=== PATIENT | female | born 1985 | race Two or more races ===

== ENCOUNTER 2016-12-11 22:34 | Emergency (ER) | payer BC, SELFPAY ==
--- NOTE | ~2016-12-11 | ER ---
[facility] AGE[facility] 31 Y [address] ROOM: [place] [address] LOCATION: ED ADMIT DATE: 12/11/2016 ER/Outpatient Report DISCHARGE DATE: 12/12/2016 FAMILY PHYSICIAN: Eliana Spear MD ATTENDING PHYSICIAN: Olivia Morgan HISTORY OF PRESENT ILLNESS: A 31-year-old female who presents today with chief complaint of about 2-1/2 hours of upper abdominal pain. It is in a bandlike in her upper abdomen, radiating to her right back, burning pain, associated with some nausea and vomiting x1, but denies any urinary symptoms. Denies any fever or chills. No diarrhea, no constipation. She has had something similar like this before. In fact, she has been to this ER before and was diagnosed with gallstones. She says that 2 hours prior to this pain started, she had a big piece of pizza. Reports her pain is a 9/10, burning and sharp at this time, coming and going in intensity but still constant. PAST MEDICAL HISTORY: Includes depression and gallstones. She has an IUD in place. SOCIAL HISTORY: She does not smoke or use any drugs, but drinks occasionally. MEDICATIONS: Tylenol for pain. ALLERGIES: NONE. REVIEW OF SYSTEMS: Reviewed by me and negative with the exception of those discussed in the HPI. PHYSICAL EXAMINATION: GENERAL: The patient looks uncomfortable. She is standing up in a stretcher, unable to sit still. She is not actively vomiting or retching. HEART: Rate is regular rate and regular rhythm at this time. LUNGS: Her lung sounds sound clear. ABDOMEN: She is tender in the right upper quadrant. Positive Villeda's as well, but no peritoneal signs. Her bowel sounds are normoactive. SKIN: Warm and dry. She does not have any scleral icterus. NEUROLOGIC: No neuro focal deficits. VITAL SIGNS: Her vital signs were reviewed. She is 5 feet 3 inches, weighs 59.9 kg. Blood pressure 156/67, heart rate 64, respiratory rate 20, temperature is 98.4, and saturations are 97% on room air. [facility] 31 [facility] [address] ROOM: [place], [place] [address] LOCATION: [facility] ADMIT DATE: 12/11/2016 ER/Outpatient Report DISCHARGE DATE: 12/12/2016 FAMILY PHYSICIAN: Eliana Spear MD ATTENDING PHYSICIAN: Olivia Morgan EMERGENCY ROOM COURSE: We did check some blood work first, and we also gave her Zofran, morphine, and Toradol through the IV. Her procalcitonin is less than 0.05. Her lactic acid is 1.3. Her CBC shows a white count of 14.5, H and H 12.9/37.3, platelets are 258. She has no bandemia. Her urine, 25 leukocytes, negative nitrites, and negative for . The CMS shows sodium 140, potassium 3.5, chloride 108, CO2 of 25, anion gap 10.5, glucose 120, BUN is 14, creatinine is 0.6, alkaline phosphatase 50, AST is 10, ALT is 21, GFR greater than 60, lipase is 234. An official ultrasound was ordered, which shows positive gallstones, but no anterior gallbladder wall thickening. Negative sonographic Villeda's, although this was done after she got her pain meds. No pericholecystic fluid. No common bile duct dilatation. I reassessed the patient after she received her pain meds. Her pain is down to a 0/10 now. She feels better. I did tell her that she has cholelithiasis, not cholecystitis at this time, and she needs to follow up with [facility] to have this scheduled to likely be removed if this keeps giving her pain. I did tell her to also watch if she should have any fatty or greasy foods. Given referral to [facility] surgeons. IMPRESSION: Cholelithiasis. MD TOM ELDRIDGE/kristopher /[id number] d: 12/12/16 0625 t: 12/15/16 1818, OUTPATIENT REPORT
[~2016-12-11 22:34] MED LIST: DERMOPLAST SPRA56 GM TOP; IRON325 M1 PO; LANSINOH7 GM TOP; PERCOCET 5-3251 EACH PO; PRENATAL 1+1)(P1 TAB; TUCKS1 EACH TOP; TUMS200 MG PO
[2016-12-11 23:01] LABS: BASOPHIL # 0.1 K/uL (0.0-0.2); BASOPHIL % 0.3 %; EOSINOPHIL # 0.2 K/uL (0.0-0.5); EOSINOPHIL % 1.6 %; HEMATOCRIT 37.3 % (33.0-46.0); HEMOGLOBIN 12.9 g/dL (11.0-15.0); IMMATURE GRANULOCYTE % 0.2 %; LYMPHOCYTE # 3.9 K/uL (0.8-4.0); LYMPHOCYTE % 26.6 %; MCH 31.7 pg (27.0-34.0); MCHC 34.6 gm/dL (32.0-36.5); MCV 91.6 fl (83.0-98.0); MONOCYTE # 0.7 K/uL (0.0-1.0); MONOCYTE % 4.7 %; NEUTROPHIL # (ANC) 9.7 K/uL (1.8-7.8); NEUTROPHIL % 66.6 %; NRBC % 0 /100WBC (0-0.00); PLATELET COUNT 258 K/uL (150-450); RBC 4.07 M/uL (3.50-5.00); RDW-CV 11.8 % (11.9-14.6); WBC 14.5 K/uL (4.0-11.0)
[2016-12-11 23:05] LABS: BILIRUBIN URINE NEGATIVE (NEGATIVE); BLOOD URINE 25 /UL (NEGATIVE); GLUCOSE URINE NEGATIVE (NEGATIVE); KETONE URINE NEGATIVE (NEGATIVE); LEUKOCYTES URINE 25 /UL (NEGATIVE); NITRITE URINE NEGATIVE (NEGATIVE); PROTEIN URINE NEGATIVE (NEGATIVE); SPEC GRAVITY URINE 1.015 (1.003-1.035); UROBILINOGEN URINE NORMAL (NORMAL)
[2016-12-11 23:07] LABS: COLOR URINE YELLOW (YELLOW); TURBIDITY URINE CLEAR (CLEAR)
[2016-12-11 23:14] LABS: BACTERIA URINE MODERATE (NEGATIVE); EPITHELIAL URINE 0-2 #/HPF (NEGATIVE)
[2016-12-11 23:15] LABS: AMORPHOUS URINE 2+ (NEGATIVE); SPERM URINE 0-2 #/HPF (NEGATIVE)
[2016-12-11 23:18] LABS: ALBUMIN 3.7 gm/dL (3.5-5.0); ALK PHOS 58 IU/L (33-138); ALT 21 IU/L (12-78); ANION GAP 10.5 (10.0-19.0); AST 10 IU/L (10-40); BLOOD UREA NITROGEN 14 mg/dL (6-24); CALCIUM 8.7 mg/dL (8.5-10.5); CHLORIDE 108 mMol/L (96-110); CO2 25 mMol/L (22-32); CREATININE 0.6 mg/dL (0.5-1.1); ESTIMATED GFR (MDRD EQUATION) > 60; POTASSIUM 3.5 mMol/L (3.7-5.1); SODIUM 140 mMol/L (135-145); TOTAL BILIRUBIN 0.2 mg/dL (0.0-1.5); TOTAL PROTEIN 7.3 g/dL (6.0-8.4)
[2016-12-15] MEDS ORDERED: CELEXA20 MG PO (10:44)
[2016-12-15] MEDS ORDERED: PRIMROSE OIL PO (10:45)
[2016-12-16] MEDS ORDERED: NORCO 5-325 TA1 EACH PO (12:44)
== END 2016-12-12 00:27 | disposition disaster alternative care site (69) ==
LOC: GMED 22:34
PROVIDERS: Emergency Medicine
DX: K80.20 Calculus of gallbladder without cholecystitis without obstruction (principal); F32.9 Major depressive disorder, single episode, unspecified; Z79.899 Other long term (current) drug therapy
CPT/HCPCS: J1885; J2270; J2405

== ENCOUNTER → 2016-12-16 | Day surgery (SDC) | payer BC, SELFPAY ==
[~2016-12-16] VITALS: Ht 160 cm; Wt 58.7 kg
[~2016-12-16] MED LIST changes: +CELEXA20 MG PO; +NORCO 5-325 TA1 EACH PO; +PRIMROSE OIL PO
--- NOTE | ~2016-12-16 | OR ---
[facility] AGE: 31 Y [address] ROOM: [place] [address] [place] [facility] [place]: 12/16/2016 OR/Procedure Report DISCHARGE DATE: FAMILY PHYSICIAN: Eliana Spear MD ATTENDING PHYSICIAN: Charan See SURGEON: Charan See MD DYE WEIGHER HELPER: Gen Camargo PA-C. DATE OF PROCEDURE: 12/16/2016 PREOPERATIVE DIAGNOSIS: Cholelithiasis. POSTOPERATIVE DIAGNOSES: 1. Cholelithiasis. 2. A 3 to 4 cm left ovarian cyst. PROCEDURE PERFORMED: Laparoscopic cholecystectomy. ANESTHESIA: General endotracheal. ESTIMATED BLOOD LOSS: 20 mL. SPECIMEN: Gallbladder. REASON FOR PROCEDURE: The patient is a 31-year-old female, who recently presented to the emergency room with severe right upper quadrant pain. This eventually settle down. An ultrasound showed cholelithiasis, but no signs of cholecystitis or duct dilatation. Her white count and liver function tests were normal. We discussed the risks and benefits of surgery versus ongoing observation and she elected to proceed with cholecystectomy. FINDINGS: The patient had numerous small to moderate-sized stones within the gallbladder. The cystic duct was normal in size. She was noted to have a thin fluid filled 3 to 4 cm left ovarian cyst. PROCEDURE IN DETAIL: The patient was taken to the operating suite and placed in the supine position. After general endotracheal anesthesia was obtained, the abdomen was prepped with ChloraPrep and sterilely draped. Marcaine was infiltrated into the incision sites. A 2 cm transverse infraumbilical incision was made. The fascia was grasped and elevated and a Veress needle was used to obtain a pneumoperitoneum. An 11 mm bladeless trocar was then advanced across the abdominal wall. Three 5 mm subcostal trocars were all placed under direct visualization. The fundus of the gallbladder was grasped and elevated. A second grasper was placed on the infundibulum. We did have to take some adhesions down to expose this area well. There did appear to be some chronic cholecystitis to the gallbladder. The cystic duct and cystic [facility] AGE: 31 Y [address] ROOM: [place] [address] [place] [facility] [place]: 12/16/2016 OR/Procedure Report DISCHARGE DATE: FAMILY PHYSICIAN: Eliana Spear MD ATTENDING PHYSICIAN: Charan See artery were skeletonized up to the gallbladder wall. These were stapled proximally and distally and divided. The gallbladder was then mobilized free of the liver bed using cautery. Once fully mobilized, the gallbladder was brought out through the umbilicus. We did have to spend some time removing numerous stones and did have to stretch the fascial opening just slightly to remove a larger stone. The abdomen was then inspected. An ovarian cyst was noted on the left ovary, this was 3 to 4 cm in size, it was thin-walled. There was no solid component that we could tell to it. We elected to leave this alone. The right upper quadrant was unremarkable. The trocars were withdrawn and the pneumoperitoneum was evacuated. The fascia at the umbilicus was closed with a [id number] Vicryl suture. The skin incisions were closed with subcuticular Monocryl. Benzoin, Steri-Strips, and gauze dressings were applied. POSTPROCEDURE PLAN: The patient will be discharged home when awake and alert. She was given a prescription for [place] for pain control. I will have her follow up in the office in a couple weeks for recheck. We will have her follow up with Dr. Spear to see if any further follow up on the cyst is needed. CHARAN SEE MD JTM/modl /[id number] CC: Eliana Spear MD d: 12/16/16 1933 t: 12/19/16 1041, OPERATIVE SUMMARY
== END | disposition disaster alternative care site (69) ==
LOC: GPOC 12-15 10:00 → GSDC 08:06
PROC: 0FT44ZZ Resection of Gallbladder, Percutaneous Endoscopic Approach (ICD-10-PCS; principal; 2016-12-16)
DX: K80.10 Calculus of gallbladder with chronic cholecystitis without obstruction (principal); N83.202 Unspecified ovarian cyst, left side; F32.9 Major depressive disorder, single episode, unspecified
CPT/HCPCS: J0694; J1100; J2405; J3010; J7120